=== PATIENT | female | born 1985 | race Caucasian/White ===

== ENCOUNTER 2018-06-02 07:35 | Day surgery (SDC) | payer OTHER ==
[2018-06-02] MEDS: SOD CHLORIDE 0.9% 1,000 ML IV (06:00)
[~2018-06-02 07:35] MED LIST: CEFAZOLIN 2 GM/50 ML (PMX) 50 ML IVPB
[2018-06-02 08:35] LABS: ADD MAN DIFF? NO
[2018-06-02 08:37] LABS: WHITE BLOOD COUNT 6.1 10^3/ul (4.8-10.8)
[2018-06-02 08:37] LABS: BASOPHIL # 0.1 10^3/ul (0.0-0.1); BASOPHILS % 1.3 % (0.0-2.0); EOSINOPHILS # 0.3 10^3/ul (0.0-0.5); EOSINOPHILS % 5.4 % (0.0-7.0); HEMATOCRIT 38.7 % (37.0-47.0); HEMOGLOBIN 12.8 g/dl (12.0-16.0); MEAN CORPUSCULAR HEMOGLOBIN 29.2 pg (29.0-33.0); MEAN CORPUSCULAR HGB CONC 33.1 g/dl (32.0-37.0); MEAN CORPUSCULAR VOLUME 88.2 fl (82.0-101.0); MEAN PLATELET VOLUME 9.8 fl (7.4-10.4); MONOCYTE # 0.5 10^3/ul (0.3-0.9); MONOCYTES % 7.4 % (0.0-11.0); NEUTROPHIL # 3.2 10^3/ul (1.6-7.5); NEUTROPHILS % 52.7 % (39.0-77.0); PLATELET COUNT 290 10^3/UL (140-415); RED BLOOD COUNT 4.39 10^6/ul (4.20-5.40)
[2018-06-02 08:56] LABS: ALANINE AMINOTRANSFERASE 24 IU/L (13-69); ALBUMIN 4.2 g/dl (3.3-4.9); ALBUMIN/GLOBULIN RATIO 1.44; ALKALINE PHOSPHATASE 51 IU/L (42-121); ANION GAP 13 (8-16); ASPARTATE AMINO TRANSFERASE 19 IU/L (15-46); BILIRUBIN,INDIRECT 0.3 mg/dl (0-1.1); BILIRUBIN,TOTAL 0.3 mg/dl (0.2-1.3); BLOOD UREA NITROGEN 14 mg/dl (7-20); CALCIUM 9.1 mg/dl (8.4-10.2); CARBON DIOXIDE 25 mmol/L (21-31); CHLORIDE 109 mmol/L (97-110); CREATININE 0.78 mg/dl (0.44-1.00); GLUCOSE 97 mg/dl (70-220); POTASSIUM 4.1 mmol/L (3.5-5.1); SODIUM 143 mmol/L (135-144); TOTAL PROTEIN 7.1 g/dl (6.1-8.1)
[2018-06-02 08:58] LABS: INR 1.02; PROTIME 13.5 Sec (11.9-14.9); PT RATIO 1.1
[2018-06-02 08:59] LABS: PARTIAL THROMBOPLASTIN TIME 30.2 Sec (25.0-35.0)
[2018-06-02] MEDS ORDERED: GLYCOPYRROLATE 0.4 MG INJ (09:24)
[2018-06-02] MEDS ORDERED: NEOSTIGMINE 3 MG/3 ML SYRINGE (09:24)
[2018-06-02] MEDS ORDERED: ROCURONIUM 50 MG INJ (09:24)
[2018-06-02] MEDS ORDERED: PROPOFOL 20 ML (09:24)
[2018-06-02] MEDS ORDERED: CEFAZOLIN 1 GM INJ (09:24)
[2018-06-02] MEDS ORDERED: FENTAnyl 50 MCG/ML VIAL (09:25)
[2018-06-02] MEDS ORDERED: DEXAMETHASONE 4 MG/ML 1 ML INJ (09:25)
[2018-06-02] MEDS ORDERED: ONDANSETRON 4 MG INJ (09:25)
[2018-06-02] MEDS ORDERED: MIDAZOLAM 1 MG/ML 2 ML INJ (09:25)
[2018-06-02] MEDS ORDERED: SUGAMMADEX SODIUM 200 MG/2 ML VIAL IV (09:46)
[2018-06-02] MEDS: BUPIVACAINE 0.5%/EPI (SDV) 30 ML INJ (09:46)
[2018-06-02] MEDS ORDERED: FENTAnyl 50 MCG/ML VIAL IV ×3 (10:00)
[2018-06-02] MEDS ORDERED: ALBUTEROL 0.083% (NEB) 2.5 MG/3 ML AMP HHN (10:00)
[2018-06-02] MEDS ORDERED: TRIMETHOBENZAMIDE 100 MG/ML VIAL IM (10:00)
[2018-06-02] MEDS ORDERED: IPRATROPIUM (NEB) 0.5 MG/2.5 ML AMP HHN (10:00)
[2018-06-02] MEDS ORDERED: EPHEDrine SULFATE 50 MG/5 ML SYG IV (10:00)
[2018-06-02] MEDS ORDERED: HYDROmorphONE 1 MG/5 ML IV SYRINGE IV ×2 (10:00)
[2018-06-02] MEDS ORDERED: MIDAZOLAM 1 MG/ML 2 ML INJ IV (10:00)
[2018-06-02] MEDS ORDERED: ONDANSETRON 4 MG INJ IV (10:00)
[2018-06-02] MEDS ORDERED: hydrALAzine 20 MG INJ IV (10:00)
[2018-06-02] MEDS ORDERED: DIPHENHYDRAMINE 50 MG INJ IV (10:00)
[2018-06-02] MEDS ORDERED: OXYCODONE/ACETAMINOPHEN (5/325) TAB PO (10:00)
[2018-06-02] MEDS ORDERED: MEPERIDINE 25 MG INJ IV (10:00)
[2018-06-02] MEDS ORDERED: LABETALOL HCL 20MG INJ IV (10:00)
[2018-06-02] MEDS: HYDROmorphONE 1 MG/5 ML IV SYRINGE IV (10:39)
[2018-06-02] MEDS: HYDROGEN PEROXIDE 118 ML TOP (10:42)
[2018-06-02] MEDS: OXYCODONE/ACETAMINOPHEN (5/325) TAB PO (11:20)
== END 2018-06-02 11:49 | disposition home or self-care (01) ==
LOC: SDS 07:35
DX: N61.1 Abscess of the breast and nipple (principal)
CPT/HCPCS: 19020; 80053; 85025; 85610; 85730